=== PATIENT | male | born 1990 | race Caucasian/White ===

== ENCOUNTER 2022-12-13 10:26 | Emergency (ER) | payer SELFPAY ==
--- NOTE | 2022-12-13 10:24 | ECG_ITS ---
APPROVED REPORT Exam: Resting ECG HR:116 bpm ECG Measurements Heart Rate 116 AXES [place] 116 P 57 QRSd 105 QRS 79 QT 315 T 10 QTc 384 Conclusion SINUS TACHYCARDIA WITH SHORT [place] INTERVAL NONSPECIFIC T-WAVE ABNORMALITY ABNORMAL RHYTHM ECG UNCONFIRMED REPORT Electronically signed by : Henry Covarrubias MD 12/13/2022 20:20:38
--- NOTE | 2022-12-13 10:30 | CT_ITS ---
PROCEDURE INFORMATION: Exam: CTA Chest With Contrast Exam date and time: 12/13/2022 11:11 AM Age: 31 years old Clinical indication: Shortness of breath; Additional info: LEONIDES Schmidt cp TECHNIQUE: Imaging protocol: Computed tomographic angiography of the chest with contrast. 3D rendering (Not supervised by radiologist): MIP and/or 3D reconstructed images were created by the technologist. Radiation optimization: All CT scans at this facility use at least one of these dose optimization techniques: automated exposure control; mA and/or kV adjustment per patient size (includes targeted exams where dose is matched to clinical indication); or iterative reconstruction. Contrast material: ISOVUE; Contrast volume: 70 ml; Contrast route: INTRAVENOUS (IV); REPORTING DATA: Count of CT and Cardiac NM exams in prior 12 months: This patient has received 3 known CTs and 0 known cardiac nuclear medicine studies in the 12 months prior to the current study. COMPARISON: CT THORACIC SPINE WO CON 12/13/2022 11:03 AM FINDINGS: Pulmonary arteries: No evidence of filling defects to suggest pulmonary emboli. Aorta: Aorta is nonaneurysmal. Trachea: Main airways are patent. Lungs: No evidence of airspace opacity or interlobular septal thickening. Pleural spaces: No pneumothorax. No pleural effusion. Heart: The left atrial appendage is normal. Heart RV/LV ratio: The RV: LV ratio is less than 1. Coronary arteries: No significant coronary artery calcifications. Lymph nodes: No evidence of mediastinal or hilar lymphadenopathy. Spleen: Spleen is enlarged to 15 cm Bones/joints: Unremarkable. No acute fracture. Soft tissues: Unremarkable. IMPRESSION: 1. No pulmonary embolus. 2. No airspace or interstitial lung disease 3. Splenomegaly
--- NOTE | 2022-12-13 10:30 | CT_ITS ---
PROCEDURE INFORMATION: Exam: CT Lumbar Spine Without Contrast Exam date and time: 12/13/2022 11:05 AM Age: 31 years old Clinical indication: Low back pain; Additional info: Midline back pain, ivdu TECHNIQUE: Imaging protocol: Computed tomography of the lumbar spine without contrast. Radiation optimization: All CT scans at this facility use at least one of these dose optimization techniques: automated exposure control; mA and/or kV adjustment per patient size (includes targeted exams where dose is matched to clinical indication); or iterative reconstruction. REPORTING DATA: Count of CT and Cardiac NM exams in prior 12 months: This patient has received 2 known CTs and 0 known cardiac nuclear medicine studies in the 12 months prior to the current study. COMPARISON: CT THORACIC SPINE WO CON 12/13/2022 11:03 AM FINDINGS: Bones/joints: There is preservation of vertebral alignment and vertebral body heights. Facet joints are aligned. No acute fracture. No significant central spinal canal stenosis or neural foraminal narrowing at any level. There is mild sclerosis along the otherwise intact sacroiliac joints. No endplate destructive changes to suggest discitis osteomyelitis. Soft tissues: Unremarkable. IMPRESSION: 1. No acute fracture. No traumatic subluxation. 2. No endplate destructive changes to suggest discitis osteomyelitis.
--- NOTE | 2022-12-13 10:30 | CT_ITS ---
PROCEDURE INFORMATION: Exam: CT Cervical Spine Without Contrast Exam date and time: 12/13/2022 11:00 AM Age: 31 years old Clinical indication: Neck pain and radicular pain (radiculopathy); Cervicothoracic region; Additional info: Midline back pain, ivdu TECHNIQUE: Imaging protocol: Computed tomography of the cervical spine without contrast. Radiation optimization: All CT scans at this facility use at least one of these dose optimization techniques: automated exposure control; mA and/or kV adjustment per patient size (includes targeted exams where dose is matched to clinical indication); or iterative reconstruction. REPORTING DATA: Count of CT and Cardiac NM exams in prior 12 months: This patient has received 2 known CTs and 0 known cardiac nuclear medicine studies in the 12 months prior to the current study. COMPARISON: No relevant prior studies available. FINDINGS: Bones/joints: Vertebral alignment is maintained. There is preservation of vertebral body heights. Facet joints are well aligned. Odontoid process is intact. Atlantoaxial interval is maintained. No acute fracture. No osseous encroachment of the spinal canal. No significant neural foraminal narrowing at any level. No evidence of endplate destructive changes to suggest discitis osteomyelitis. Paranasal sinuses: Scattered mucosal thickening throughout the paranasal sinuses. Lungs: Lung apices are normal. Soft tissues: Prevertebral and paravertebral soft tissues are unremarkable. IMPRESSION: 1. No acute fracture. No traumatic subluxation. 2. No evidence of endplate destructive changes to suggest discitis osteomyelitis.
--- NOTE | 2022-12-13 10:30 | CT_ITS ---
PROCEDURE INFORMATION: Exam: CT Thoracic Spine Without Contrast Exam date and time: 12/13/2022 11:03 AM Age: 31 years old Clinical indication: Pain in thoracic spine; With myelopathy; Additional info: Midline back pain, ivdu TECHNIQUE: Imaging protocol: Computed tomography of the thoracic spine without contrast. Radiation optimization: All CT scans at this facility use at least one of these dose optimization techniques: automated exposure control; mA and/or kV adjustment per patient size (includes targeted exams where dose is matched to clinical indication); or iterative reconstruction. REPORTING DATA: Count of CT and Cardiac NM exams in prior 12 months: This patient has received 2 known CTs and 0 known cardiac nuclear medicine studies in the 12 months prior to the current study. COMPARISON: CT CERVICAL SPINE WO CON 12/13/2022 11:00 AM FINDINGS: Bones/joints: There is preservation of vertebral alignment and vertebral body heights. Facet joints are aligned. No acute fracture. There is no significant osseous encroachment of the spinal canal or neural foraminal narrowing at any level. No endplate destructive changes to suggest osteomyelitis. Soft tissues: Unremarkable. IMPRESSION: 1. No acute fracture. No traumatic subluxation. 2. No endplate destructive changes to suggest osteomyelitis.
--- NOTE | 2022-12-13 10:31 | PC.NURSE ---
Rn's @ [facility] placing line and getting labs
--- NOTE | 2022-12-13 10:38 | HMH.EDGENADL ---
Discharge Plan Disposition Chief Complaint: Anxiety Prescriptions Prescriptions: No Action No Known Home Medications Clinical Impressions Clinical Impression: Weakness of both hands, IVDU (intravenous drug user), Back pain, Chest pain Discharge ED Provider: Marlon Mcmullen General Adult HPI General Chief complaint: Anxiety Stated complaint: Chest Pain Time Seen by Provider: 12/13/22 10:40 History of Present Illness HPI narrative: Patient is a 31-year-old male with past medical history of IV drug use who presents to the emergency department for evaluation of multiple complaints. Over the last few days patient has had progressive midline back pain which started in his lumbosacral spine and has spends progressed up to his neck. There is associated numbness and tingling in his bilateral hands radiating down the medial aspect of his arm distal to the elbow with bilateral weak print support specialist strength causing him to present here for continued evaluation. Patient has associated chest pain, onset was acute just prior to arrival. Symptoms are moderate to severe in intensity. IV drug use (heroin) last used yesterday. Denies allergies. No other acute complaints at this time. Denies urinary incontinence, denies saddle anesthesia, gait difficulties. Related Data Home Medications Medication Instructions Recorded Confirmed No Known Home Medications 12/13/22 12/13/22 Allergies Allergy/AdvReac Type Severity Reaction Status Date / Time No Known Allergies Allergy Verified 12/13/22 10:59 [facility] Disclaimer: The information contained in this section may have been updated after the patient was seen, as this information can be updated by other users. Social History Smoking Status: Current every day smoker alcohol intake: current current occupational status: unemployed Travel in the last 8 weeks: None ROS Obtained: Yes Systems reviewed as appropriate & no additional complaints except as documented Physical Exam General General appearance: alert and in no apparent distress Head Head exam: atraumatic and normocephalic Eye Eye exam: Present PERRL and EOMI ENT ENT exam: Present mucous membranes moist Neck Neck exam: Present normal inspection Chest Chest inspection: Present normal inspection and symmetric chest wall rise Respiratory Respiratory exam: Present normal lung sounds bilaterally and respiratory distress (Tachypnea) Cardiovascular Cardiovascular exam: Present normal rhythm, tachycardia and other (No pitting edema bilateral lower extremities.) Abdominal Exam Abdominal exam: Present soft; Absent tenderness Extremities Exam Extremities exam: Present normal inspection Back Exam Back exam: Present tenderness (Diffuse, midline) Neurological Exam Neurological exam: Present alert, oriented X3, CN II-XII intact and motor sensory deficit (Decreased sensation bilateral upper extremities on the radial aspect of the forearm down into the palm diffusely. Decreased print support specialist strength bilaterally, 5 out of 5 strength at the elbows and shoulders, 5 out of 5 strength bilateral lower extremities.) Psychiatric Psychiatric exam: Present normal affect Skin Skin exam: Present warm and dry Medical Decision Making Nikko Inquiry Pt receiving controlled substance: No Vital Signs: 12/13/22 10:45 12/13/22 11:30 Pulse Rate 102 H Pulse Rate [Left Radial] 119 H Respiratory Rate 22 21 Blood Pressure 156/93 H Blood Pressure [Right Arm] 149/92 H Blood Pressure Mean 102 Blood Pressure Mean [Right Arm] 111 02 Sat by Pulse Oximetry 100 100 Oxygen Delivery Method Room Air Lab Data Lab Results 12/13/22 10:36: ESR 46 H 12/13/22 10:36: Troponin I < 0.01, C-Reactive Protein 23.3 H 12/13/22 10:36: WBC 15.4 H, RBC 4.86, Hgb 12.6 L, Hct 37.9 L, MCV 77.9 L, MCH 25.8 L, MCHC 33.1, RDW 14.5, Plt Count 467 H, MPV 7.4, Neut % (Auto) 90.5 H, Lymph % (Auto) 5.3 L, [place] % (Auto) 2.8, Eos % (Auto) 1.1, Baso % (Auto) 0.3,
[2022-12-13 10:45] VITALS: BP 149/92; PULSE 119; RESP 22; O2SAT 100; BMI 26.4
[2022-12-13 10:48] LABS: Basophils # 0.1 K/mm3 (0-0.2); Basophils % 0.3 % (0.1-2.0); Eosinophils # 0.2 K/mm3 (0.0-0.4); Eosinophils % 1.1 % (0.1-12.0); Hematocrit 37.9 % (42.0-52.0); Hemoglobin 12.6 g/dL (14.1-18.0); Lymphocytes # 0.8 K/mm3 (0.7-4.5); Lymphocytes % 5.3 % (10-50); Mean Corpuscular HGB Conc 33.1 g/dL (31.8-35.4); Mean Corpuscular Hemoglobin 25.8 pg (27.0-31.2); Mean Corpuscular Volume 77.9 fl (80-94); Mean Platelet Volume 7.4 fl (7.4-10.4); Monocytes # 0.4 K/mm3 (0.1-1.0); Monocytes % 2.8 % (1.7-9.3); Neutrophils % 90.5 % (37.0-80.0); Platelet Count 467 K/mm3 (142-424); Red Blood Count 4.86 M/mm3 (4.60-6.20); Red Cell Distribution Width 14.5 % (11.5-17.5); White Blood Count 15.4 K/mm3 (4.8-10.8)
[2022-12-13 10:50] LABS: Chloride 97 mmol/L (98-107)
[2022-12-13 10:51] LABS: Potassium 3.7 mmoL/L (3.5-5.1); Sodium 132 mmol/L (136-145)
[2022-12-13 10:53] LABS: Alanine Aminotransferase 34 U/L (12-78); Alkaline Phosphatase 117 U/L (38-126); Anion Gap 18.7 mEq/L (5-15); Aspartate Amino Transferase 34 U/L (17-59); Bilirubin,Total 1.1 mg/dl (0.2-1.3); Blood Urea Nitrogen 11 mg/dl (9-20); Carbon Dioxide 20 mmol/L (22.0-30.0); Estimated Glomerular Filt Rate 132 ml/min (>60); GFR (African American) 159 ML/MIN (>60); MANUAL DIFFERENTIAL MANUAL DIFFERENTIAL (MANUAL DIFF)
[2022-12-13 10:54] LABS: Albumin Level 4.4 g/dl (3.5-5.0); Albumin/Globulin Ratio 1.1 (1.1-1.8); Calcium 9.4 mg/dl (8.4-10.2); Glucose 125 mg/dl (74-100); Total Protein,Serum 8.4 g/dl (6.3-8.2)
--- NOTE | 2022-12-13 10:55 | PC.NURSE ---
Radiology @ [facility] taking patient to CT
[2022-12-13 10:58] LABS: C-Reactive Protein 23.3 mg/L (0-4)
[2022-12-13 11:09] LABS: Troponin I < 0.01 ng/ml (0.00-0.034)
[2022-12-13 11:13] LABS: Eosinophils % 1 % (0-3); Lymphocytes % 5 % (10-50); Monocytes % 2 % (2-9); Neutrophils % 92 % (42-76); Total Cells Counted 100
[2022-12-13 11:14] LABS: Platelet Estimate Slight Increase; RBC Morphology Normal
[2022-12-13 11:16] LABS: Erythrocyte Sedimentation Rate 46 mm/hr (0-15)
[2022-12-13 11:30] VITALS: BP 156/93; PULSE 102; RESP 21; O2SAT 100
[2022-12-13 11:32] LABS: Appearance,Urine CLEAR (Clear); Bilirubin,Urine Negative (Negative); Blood, Urine Negative (Negative); Color,Urine YELLOW (Yellow); Glucose,Urine (UA) Negative (Negative); Ketones,Urine Negative (Negative); Leukocyte Esterase,Urine Negative (Negative); Microscopic, Urine URINE MICROSCOPIC (MICROSCOPIC); Nitrate,Urine Negative (Negative); PH,Urine 7.5 (5.0-8.5); Protein,Urine Negative (Negative); Specific Gravity, Urine <= 1.005 (1.005-1.030); Urobilinogen,Urine 0.2 EU/dl (0.2)
--- NOTE | 2022-12-13 11:34 | PC.NURSE ---
calling [facility] for transfer of pt
--- NOTE | 2022-12-13 11:40 | PC.NURSE ---
CHADWICK MCINTYRE on phone with [facility]
--- NOTE | 2022-12-13 11:42 | PC.NURSE ---
davy tay speaking with [facility] about transferring
[2022-12-13 11:43] LABS: Squamous Epithelial Cell,Urine Occasional #/hpf (0-5)
[2022-12-13 11:45] VITALS: PULSE 102; TEMP 37.9; O2SAT 100
--- NOTE | 2022-12-13 11:49 | PC.NURSE ---
called [facility] for air travel for this pt. [facility] will call back with information
--- NOTE | 2022-12-13 11:50 | PC.NURSE ---
rounded on pt, no needs at this time
--- NOTE | 2022-12-13 11:54 | PC.NURSE ---
Brandt from [facility] called and said [place] [facility] accepted transfer. ETA 42-50 minutes out.
[2022-12-13 12:00] VITALS: BP 152/93; PULSE 105; O2SAT 100
--- NOTE | 2022-12-13 12:02 | PC.NURSE ---
pt updated on poc
--- NOTE | 2022-12-13 12:13 | PC.NURSE ---
[facility] called saying they have taken off will land in 11 minutes
--- NOTE | 2022-12-13 12:14 | PC.NURSE ---
called house to notify we will have a helicopter land in 11 minutes
--- NOTE | 2022-12-13 12:16 | PC.NURSE ---
updated pt on helicopter status
--- NOTE | 2022-12-13 12:23 | PC.NURSE ---
called report to wes prather at
--- NOTE | 2022-12-13 12:32 | PC.NURSE ---
flight team picking up pt at this time
--- NOTE | 2022-12-13 12:33 | PC.NURSE ---
bedside report given to [facility]
[2022-12-13 12:40] VITALS: BP 135/81; PULSE 102; RESP 20; TEMP 37.9; O2SAT 100
== END 2022-12-13 12:45 | disposition short-term general hospital (02) ==
PROVIDERS: Emergency Provider Emergency Medicine
DX: R07.9 Chest pain, unspecified (principal); M54.50 Low back pain, unspecified; R53.1 Weakness; F17.200 Nicotine dependence, unspecified, uncomplicated
CPT/HCPCS: 71275; 72125; 72128; 72131; 80053; 81001; 84484; 85007; 85025; 85651; 86140; 87040; 93005; 96360; 96361; 96365; 96366; 96374; 96375; 99291; Q9967